=== PATIENT | female | born 1985 | race Caucasian/White ===

== ENCOUNTER 2016-08-25 21:54 | Emergency (ER) | payer MEDICAID ==
[2016-08-25 22:17] VITALS: BMI 22.1
[2016-08-25 22:22] VITALS: TEMP 98
--- NOTE | 2016-08-25 22:39 | ED PDOC ---
Arrival/HPI - General Chief Complaint: Trauma Time Seen by Provider: 08/25/16 22:36 Historian: Patient, Spouse - History of Present Illness Narrative History of Present Illness (Text): 08/25/16 22:37 This 31 yo female presents to this ED c/o head injury x 3 hours ago. Patient stated a parking lot gate bar hit top of her head. Patient stated she has a GARCIA , and she had a blurred vision. Denies n/v, dizziness, dysarthria, diplopia, n/ v, cms, weakness, paresthesias, abrasion, or abnormal gait. Time/Duration: 1-3 hours Quality: Aching Severity Level: 2 Context: Other (parking lot) Past Medical History - Provider Review Nursing Documentation Reviewed: Yes - Infectious Disease Hx of Infectious Diseases: None - Psychiatric Hx Depression: No Hx Emotional Abuse: No Hx Physical Abuse: No Hx Substance Use: No - Surgical History Other/Comment: ovarian cyst - Anesthesia Hx Anesthesia: Yes Hx Anesthesia Reactions: No Hx Malignant Hyperthermia: No - Suicidal Assessment Feels Threatened In Home Enviroment: No Family/Social History - Physician Review Nursing Documentation Reviewed: Yes Family/Social History: No Known Family HX Smoking Status: Never Smoked Hx Alcohol Use: No Hx Substance Use: No Hx Substance Use Treatment: No Allergies/Home Meds Allergies/Adverse Reactions: Allergies No Known Allergies Allergy (Verified 01/25/12 12:04) Review of Systems - Review of Systems Constitutional: Normal. absent: Fatigue, Weight Change, Fevers Eyes: Other (blurred) ENT: Normal Respiratory: Normal Cardiovascular: Normal Gastrointestinal: Normal Genitourinary Female: Normal Musculoskeletal: Normal Skin: Normal. absent: Rash Neurological: Headache. absent: Dizziness, Focal Weakness, Gait Changes, Speech Changes, Facial Droop, Disequilibrium, Seizure Endocrine: Normal Hemo/Lymphatic: Normal Psychiatric: Normal Physical Exam Vital Signs Temp Pulse Resp BP Pulse Ox 08/26/16 01:28 98 H 18 114/77 100 08/25/16 22:20 98.0 F 89 16 141/84 99 Temperature: Afebrile Blood Pressure: Normal Pulse: Regular Respiratory Rate: Normal Appearance: Positive for: Well-Appearing, Non-Toxic, Comfortable Pain Distress: None Mental Status: Positive for: Alert and Oriented X 3 - Systems Exam Head: Present: Atraumatic, Normocephalic, Other (No raccoon sign. No vanessa sign). No: Tenderness, Contusion, Swelling, Ecchymosis, Abrasion Pupils: Present: PERRL, Other (no hyphema) Extroacular Muscles: Present: EOMI. No: Entrapment Conjunctiva: Present: Normal Ears: Present: Normal, NORMAL TM, Normal Canal, Other (hemotympanum). No: Erythema, TM Bulging, Fluid, TM Perf Mouth: Present: Moist Mucous Membranes Pharnyx: Present: Normal Nose (External): Present: Atraumatic Nose (Internal): Present: Normal Inspection Neck: Present: Normal Range of Motion, Trachea Midline. No: Meningeal Signs, MIDLINE TENDERNESS, Paraspinal Tenderness Respiratory/Chest: Present: Clear to Auscultation, Good Air Exchange. No: Respiratory Distress, Accessory Muscle Use Back: Present: Normal Inspection Upper Extremity: Present: Normal Inspection, Normal ROM. No: Cyanosis, Edema Lower Extremity: Present: Normal Inspection, Normal ROM. No: Edema Neurological: Present: GCS=15, CN II-XII Intact, Speech Normal, Motor Func Grossly Intact, Normal Sensory Function, Normal Cerebellar Funct, Norm Deep Tendon Reflexes, Gait Normal, Memory Normal, Other (No neuro focal deficits) Skin: Present: Warm, Dry, Normal Color. No: Rashes Psychiatric: Present: Alert, Oriented x 3, Normal Insight, Normal Concentration Medical Decision Making ED Course and Treatment: 08/25/16 23:[address] head because urine was positive. Patient stated GARCIA has improved, and she does not have blurred vision at this time. 08/26/16 00:29 Re-evaluation. Patient feels better. Discussed results and plan with patient who expresses understanding. All questions answered and there is agreement with the plan to discharge home with instructions. Patient stable for discharge. Return if symptoms persist or worsen. Patient understands to return to ED if she developed worsening of symptoms, diplopia, dizziness, n/v, or abnormal gait. Re-evaluation Time: 00:30 Reassessment Condition: Re-examined, Improved - Lab Interpretations Lab Results: Lab Results 08/25/16 23:51: Beta HCG, Quant 159.95 H 08/25/16 23:45: Urine HCG, Qual Positive I have reviewed the lab results: Yes Interpretation: All labs normal Disposition/Present on Arrival - Present on Arrival Any Indicators Present on Arrival: No History of DVT/PE: No History of Uncontrolled Diabetes: No Urinary Catheter: No History of Decub. Ulcer: No History Surgical Site Infection Following: None - Disposition Have Diagnosis and Disposition been Completed?: Yes Diagnosis: Closed head injury, Disposition: HOME/ ROUTINE Disposition Time: 00:31 Patient Plan: Discharge Condition: IMPROVED Discharge Instructions (ExitCare): (ED), Head Injury (ED) Additional Instructions: Call private [facility] doctor for follow up visit in 1-2 days. Return to emergency if symptoms worsen, vomiting, confusion, abnormal walk, double vision. Take medication as instructed. Prescriptions: Vit No.78/Iron/FA [Prenatabs FA Tablet] 1 each PO DAILY #30 tablet Referrals: Quentin Mccartney MD [Primary Care Provider] - [facility] - Follow up with primary Forms: WORK NOTE
[2016-08-26 01:29] VITALS: BP 114/77; PULSE 98; RESP 18; O2SAT 100
== END 2016-08-26 01:30 | disposition home or self-care (01) ==
LOC: ED 21:54
DX: S09.90XA Unspecified injury of head, initial encounter (principal); W22.8XXA Striking against or struck by other objects, initial encounter; Y92.481 Parking lot as the place of occurrence of the external cause; Z33.1 Pregnant state, incidental

== ENCOUNTER 2017-01-25 22:24 | Emergency (ER) | payer MEDICAID ==
[2017-01-25 22:39] VITALS: BMI 23.8
--- NOTE | 2017-01-25 22:54 | ED PDOC ---
Arrival/HPI - General Chief Complaint: Chest Pain Time Seen by Provider: 01/25/17 22:38 Historian: Patient - History of Present Illness Narrative History of Present Illness (Text): 01/25/17 22:53 Mckenna Mujica is a 31 year old female who presents to the Emergency department complaining of chest pain. Patient states she has been experiencing left-sided chest pain radiating to her back and down her left arm since this morning. Patient states pain is worsened with movement and deep inspiration. Patient denies any fever, chills, chest pain, shortness of breath, nausea, vomiting, diarrhea, urinary symptoms, back pain, neck pain, headache, dizziness, or any other complaints. Time/Duration: Other (today) Symptom Onset: Gradual Activities at Onset: Rest, Light Context: Home Past Medical History - Provider Review Nursing Documentation Reviewed: Yes - Infectious Disease Hx of Infectious Diseases: None - Psychiatric Hx Depression: No Hx Emotional Abuse: No Hx Physical Abuse: No Hx Substance Use: No - Surgical History Other/Comment: ovarian cyst - Anesthesia Hx Anesthesia: Yes Hx Anesthesia Reactions: No Hx Malignant Hyperthermia: No - Suicidal Assessment Feels Threatened In Home Enviroment: No Family/Social History - Physician Review Nursing Documentation Reviewed: Yes Family/Social History: Unknown Family HX Smoking Status: Never Smoked Hx Alcohol Use: No Hx Substance Use: No Hx Substance Use Treatment: No Allergies/Home Meds Allergies/Adverse Reactions: Allergies No Known Allergies Allergy (Verified 01/26/17 02:08) Review of Systems - Physician Review All systems were reviewed & negative as marked: Yes - Review of Systems Constitutional: Normal. absent: Fevers Eyes: Normal ENT: Normal Respiratory: Normal. absent: SOB, Cough Cardiovascular: Chest Pain Gastrointestinal: Normal. absent: Abdominal Pain, Diarrhea, Nausea, Vomiting Genitourinary Female: Normal. absent: Dysuria, Frequency, Hematuria, Urine Output Changes Musculoskeletal: absent: Neck Pain Skin: Normal. absent: Rash Neurological: Normal. absent: Headache, Dizziness Endocrine: Normal Hemo/Lymphatic: Normal Psychiatric: Normal Physical Exam Vital Signs Reviewed: Yes Vital Signs Temp Pulse Resp BP Pulse Ox 01/26/17 02:35 94 H 16 103/67 99 01/26/17 00:24 84 16 114/76 100 01/25/17 22:25 98.2 F 80 20 114/70 100 Temperature: Afebrile Blood Pressure: Normal Pulse: Regular Respiratory Rate: Normal Appearance: Positive for: Well-Appearing, Non-Toxic, Comfortable Pain Distress: None Mental Status: Positive for: Alert and Oriented X 3 - Systems Exam Head: Present: Atraumatic, Normocephalic Pupils: Present: PERRL Extroacular Muscles: Present: EOMI Conjunctiva: Present: Normal Mouth: Present: Moist Mucous Membranes Neck: Present: Normal Range of Motion Respiratory/Chest: Present: Clear to Auscultation, Good Air Exchange, Tender to Palpation (Tenderness to left chest wall). No: Respiratory Distress, Accessory Muscle Use Cardiovascular: Present: Regular Rate and Rhythm, Normal S1, S2. No: Murmurs Abdomen: Present: Normal Bowel Sounds. No: Tenderness, Distention, Peritoneal Signs Back: Present: Normal Inspection Upper Extremity: Present: Normal Inspection. No: Cyanosis, Edema Lower Extremity: Present: Normal Inspection. No: Edema Neurological: Present: GCS=15, CN II-XII Intact, Speech Normal Skin: Present: Warm, Dry, Normal Color. No: Rashes Psychiatric: Present: Alert, Oriented x 3, Normal Insight, Normal Concentration Medical Decision Making ED Course and Treatment: 01/25/17 22:54 Impression: 31 year old female complaining of left-sided chest pain, worse with movement/ deep inspiration since this morning. Differential Diagnosis included but are not limited to: musculoskeletal pain vs. costochondritis Plan: -- EKG -- Labs, cardiac enzymes, D-dimer -- UA -- Reassess and disposition Prior Visits: Notes and results from previous visits were reviewed. Progress Notes: Reviewed EKG, NSR at 80 bpm. Non-specific ST/T wave changes. 01/26/17 02:37 On reevaluation the patient feels better and is in no acute distress. I have discussed the results and plan with the patient, who expresses understanding. Patient given the opportunity to ask question, all questions were answered and there is agreement with the plan to discharge the patient home. Patient is stable for discharge. Patient was instructed to follow up with physician/clinic in 1-2 days or return if symptoms persist/worsen or new concerning symptoms arise. - Lab Interpretations Lab Results: 01/26/17 00:10 01/26/17 00:10 Lab Results 01/26/17 01:21: Urine Color Yellow, Urine Appearance Sl cloudy, Urine pH 6.0, Ur Specific [place] 1.020, Urine Protein Negative, Urine Glucose (UA) Negative, Urine Ketones Negative, Urine Blood Negative, Urine Nitrate Negative, Urine Bilirubin Negative, Urine Urobilinogen 0.2, Ur Leukocyte Esterase Trace H, Urine RBC 0 - 2, Urine WBC 1 - 3, Ur Epithelial Cells 3 - 4, Urine Bacteria Mod , Urine HCG, Qual Negative 01/26/17 00:10: Sodium 137, Potassium 4.4, Chloride 100, Carbon Dioxide 25, Anion Gap 16, BUN 15, Creatinine 0.6, Est GFR ( Amer) > 60, Est GFR (Non- Af Amer) > 60, Random Glucose 86, Calcium 9.6, Magnesium 2.0, Total Bilirubin 0.5, AST 28, ALT 21, Alkaline Phosphatase 59, Lactate Dehydrogenase 454, Total Creatine Kinase 57, Troponin I < 0.01, Total Protein 8.1, Albumin 4.6, Globulin 3.5, Albumin/Globulin Ratio 1.3 01/26/17 00:10: D-Dimer, Quantitative 0.49 01/26/17 00:10: WBC 5.1, RBC 4.58, Hgb 12.7, Hct 38.3, MCV 83.6, MCH 27.7, MCHC 33.2, RDW 13.2, Plt Count 221, MPV 10.7, Gran % 31.7 L, Lymph % (Auto) 57.2 H, Gregory % (Auto) 7.8 H, Eos % (Auto) 2.9, Baso % (Auto) 0.4, Gran # 1.63, Lymph # 2.9, Gregory # 0.4, Eos # 0.2, Baso # 0.02 I have reviewed the lab results: Yes - EKG Interpretation Interpreted by ED Physician: Yes Type: 12 lead EKG - Medication Orders Current Medication Orders: Discontinued Medications Ibuprofen (Motrin Tab) 400 mg PO ONCE STA Stop: 01/26/17 01:27 Last Admin: 01/26/17 01:41 Dose: 400 mg Ketorolac Tromethamine (Toradol) 30 mg IVP ONCE ONE Stop: 01/26/17 00:53 Last Admin: 01/26/17 01:27 Dose: LUDWIG Risk Score for UA/NSTEMI - LUDWIG Risk Score Age > 64: NO 3 or more CAD Risk Factors: NO Known CAD (Stenosis greater than 50%): NO Aspirin use in past 7 days: NO Severe Angina: NO EKG ST changes greater than 0.5mm: NO Positive Cardiac Marker: NO LUDWIG Score: 0 % risk at 14 days of: all cause mortality, new or recurrent ID, or severe recurrent ischemia requiring urgen revascularization: 5% - Scribe Statement The provider has reviewed the documentation as recorded by the Jennifer Alonso Provider Scribe Attestation: All medical record entries made by the Juanitaibe were at my direction and personally dictated by me. I have reviewed the chart and agree that the record accurately reflects my personal performance of the history, physical exam, medical decision making, and the department course for this patient. I have also personally directed, reviewed, and agree with the discharge instructions and disposition. Disposition/Present on Arrival - Present on Arrival Any Indicators Present on Arrival: No History of DVT/PE: No History of Uncontrolled Diabetes: No Urinary Catheter: No History of Decub. Ulcer: No History Surgical Site Infection Following: None - Disposition Have Diagnosis and Disposition been Completed?: Yes Diagnosis: Costochondritis Disposition: HOME/ ROUTINE Disposition Time: 02:25 Condition: GOOD Discharge Instructions (ExitCare): Costochondritis (ED) Prescriptions: Naproxen [Naprosyn Tab] 375 mg PO BID #12 tab Referrals: Quentin Mccartney MD [Primary Care Provider] - Follow up with primary Forms: [employer] (Frisian), WORK NOTE
[2017-01-25 23:24] VITALS: TEMP 98.2
[2017-01-26 00:38] LABS: BASO # 0.02 K/mm3 (0.0-2.0); BASO % 0.4 % (0.0-3.0); EOS # 0.2 (0.0-0.7); EOS % 2.9 % (1.5-5.0); GRAN # 1.63 (1.4-6.5); GRAN % 31.7 % (50.0-68.0); HEMOGLOBIN 12.7 g/dL (12.0-16.0); LYMPH # 2.9 (1.2-3.4); LYMPH % 57.2 % (22.0-35.0); MEAN CELL VOLUME 83.6 fl (80.0-105.0); MEAN CORPUSCULAR HEMOGLOBIN 27.7 pg (25.0-35.0); MEAN CORPUSCULAR HGB CONC 33.2 g/dl (31.0-37.0); MEAN PLATELET VOLUME 10.7 fl (7.0-11.0); MONO # 0.4 (0.1-0.6); MONO % 7.8 % (1.0-6.0); PLATELET COUNT 221 10^3/uL (120.0-450.0); RBC 4.58 10^6/uL (3.5-6.1); RED CELL DISTRIBUTION WIDTH 13.2 % (11.5-14.5); WHITE BLOOD COUNT 5.1 10^3/ul (4.5-11.0)
[2017-01-26 00:49] LABS: ALB/GLOB RATIO 1.3 (1.1-1.8); ALBUMIN 4.6 g/dL (3.0-4.8); ALT/SGPT 21 U/L (7-56); AST/SGOT 28 U/L (15-39); BLOOD UREA NITROGEN 15 mg/dL (7-21); CALCIUM 9.6 mg/dL (8.4-10.5); GFR AFRICAN-AMERICAN > 60; GFR NON-AFRICAN AMERICAN > 60
[2017-01-26 01:06] LABS: TROPONIN I < 0.01 ng/mL
[2017-01-26 01:41] LABS: URINE BILIRUBIN NEGATIVE (NEGATIVE); URINE BLOOD NEGATIVE (NEGATIVE); URINE GLUCOSE (UA) NEGATIVE (NEGATIVE); URINE LEUKOCYTE ESTERASE TRACE Leu/uL (NEGATIVE); URINE NITRATE NEGATIVE (NEGATIVE); URINE PROTEIN NEGATIVE mg/dL (<30 mg/dL); URINE UROBILINOGEN 0.2 E.U./dL (<1 E.U./dL)
[2017-01-26 01:52] LABS: URINE COLOR YELLOW (YELLOW)
[2017-01-26 01:53] LABS: HCG,QUALITATIVE URINE NEGATIVE (NEGATIVE); URINE APPEARANCE SL CLOUDY (CLEAR)
[2017-01-26 02:05] VITALS: RESP 16
[2017-01-26 02:17] LABS: URINE BACTERIA MOD (NEG); URINE RBC 0 - 2 /hpf (0-2)
[2017-01-26 02:35] VITALS: BP 103/67; PULSE 94; O2SAT 99
--- NOTE | 2017-01-26 11:50 | CARD ---
APPROVED REPORT EKG Measurement Heart [id number] <Conclusion> Normal sinus rhythm Possible Left atrial enlargement. Poor R Progression V1-V4.
--- NOTE | 2017-01-27 09:40 | CARD ---
APPROVED REPORT EKG Measurement Heart [id number] [place] [id number] <Conclusion> Normal sinus rhythm Normal ECG
== END 2017-01-26 02:38 | disposition home or self-care (01) ==
LOC: ED 22:24
DX: M94.0 Chondrocostal junction syndrome [Tietze] (principal)